=== PATIENT | male | born 1970 | race Caucasian/White ===

== ENCOUNTER 2017-08-18 09:36 | Emergency (ER) | payer BC, SELFPAY ==
[2017-08-18] MEDS ORDERED: AMOX/K CLAV 875 MG TAB ONE (10:25)
[2017-08-18] MEDS ORDERED: HYDROCODONE/APAP 7.5/325 MG TAB ONE (10:25)
[2017-08-18] MEDS ORDERED: TETANUS & DIPHTHERIA TOX,ADULT 0.5 ML VIAL ONE (10:25)
--- NOTE | 2017-08-18 11:33 | RAD REPORT ---
EXAM DESCRIPTION: RAD - Knee Left 3 View - 08/18/2017 11:27 am CLINICAL HISTORY: Pain COMPARISON: None. FINDINGS: No fracture or dislocation is seen. No significant suprapatellar joint fluid. No aggressiv e marrow lesion. IMPRESSION: No acute finding.
--- NOTE | 2017-08-18 11:45 | EDPHYS ---
Physician Documentation [facility] Name: Tejinder Caballero Age: 47 yrs Sex: Male : 1970 Arrival Date: 08/18/2017 Time: 09:39 Bed 11 Private MD: ED Physician Jose Daniel Dominguez HPI: 08/18 11:03 This 47 yrs old Male presents to ER via Wheelchair with complaints of Finger kb Injury, Leg Injury. 11:03 The patient presents with decreased range of motion, pain, that is acute. The kb complaints affect the left knee. Context: The problem was sustained at home, outdoors, resulted from the patient falling, from porch, the patient can partially bear weight, the patient is not able to ambulate, Problem is a result from a previous injury: No. Onset: The symptoms/episode began/occurred yesterday. Modifying factors: The symptoms are alleviated by nothing. the symptoms are aggravated by weight bearing, bending knee. Associated signs and symptoms: Pertinent negatives calf tenderness, fever, nausea, numbness, rash, swelling, tingling, vomiting, warmth, weakness. Treatment prior to arrival includes: no previous treatment. Severity of symptoms: At their worst the symptoms were mild, moderate, in the emergency department the symptoms are unchanged. The patient has not experienced similar symptoms in the past. The patient has not recently seen a physician. Pt states "My dog and I got into a fight last night, he bit me and I fell off the porch landing on my knee." c/o left knee pain. Historical: - Allergies: 09:53 NKA; iw - Home Meds: 09:53 None [Active]; iw - PMHx: 09:53 HEP C; Irregular heart rate; iw - PSHx: 09:53 None; iw - Immunization history:: Adult Immunizations Last tetanus immunization: unknown. - Social history:: Smoking status: Patient uses tobacco products, smokes two packs cigarettes per day. Patient uses alcohol. ROS: 10:58 Constitutional: Negative for fever, chills, and weight loss, Cardiovascular: Negative kb for chest pain, palpitations, and edema, Respiratory: Negative for shortness of breath, cough, wheezing, and pleuritic chest pain, Abdomen/GI: Negative for abdominal pain, nausea, vomiting, diarrhea, and constipation, Neuro: Negative for headache, weakness, numbness, tingling, and seizure. 10:58 MS/extremity: Positive for decreased range of motion, pain, tenderness, of the left knee. 10:58 Skin: Positive for abrasion(s), of the right hand. Exam: 10:58 Constitutional: This is a well developed, well nourished patient who is awake, alert, kb and in no acute distress. Head/Face: Normocephalic, atraumatic. Chest/axilla: Normal chest wall appearance and motion. Nontender with no deformity. No lesions are appreciated. Cardiovascular: Regular rate and rhythm with a normal S1 and S2. No gallops, murmurs, or rubs. Normal PMI, no JVD. No pulse deficits. Respiratory: Lungs have equal breath sounds bilaterally, clear to auscultation and percussion. No rales, rhonchi or wheezes noted. No increased work of breathing, no retractions or nasal flaring. Abdomen/GI: Soft, non-tender, with normal bowel sounds. No distension or tympany. No guarding or rebound. No evidence of tenderness throughout. Neuro: Awake and alert, GCS 15, oriented to person, place, time, and situation. Cranial nerves II-XII grossly intact. Motor strength 5/5 in all extremities. Sensory grossly intact. Cerebellar exam normal. Normal gait. 10:58 Musculoskeletal/extremity: Extremities: grossly normal except: noted in the left knee: decreased ROM, pain, swelling, tenderness, ROM: limited active range of motion due to pain, in the left knee, Circulation is intact in all extremities. Sensation intact. Weight bearing: can bear weight with assistance only. 10:58 Skin: injury, bite(s), superficial, of the right hand. Vital Signs: 09:52 BP 142 / 98; Pulse 81; Resp 16 S; Temp 98.2; Pulse Ox 98% on R/A; Weight 117.03 kg; iw Height 6 ft. 3 in. (190.50 cm); Pain 10; 09:52 Body Mass Index 32.25 (117.03 kg, 190.50 cm) iw MDM: 10:15 Patient medically screened. kb 11:02 Data reviewed: vital signs, nurses notes. Data interpreted: Pulse oximetry: on room air kb is 98 %. Interpretation: normal. 11:35 Counseling: I had a detailed discussion with the patient and/or guardian regarding: the kb historical points, exam findings, and any diagnostic results supporting the discharge/admit diagnosis, radiology results, the need for outpatient follow up, a family practitioner, to return to the emergency department if symptoms worsen or persist or if there are any questions or concerns that arise at home. 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 Exp: iw 01/11/2019. Lot #: [id number]. } Route: IM; Site: right deltoid; 10:39 Drug: [place] (7.5 mg-325 mg) 1 tabs Route: PO; iw 10:39 Drug: Augmentin 875 mg Route: PO; Disposition: 13:03 Co-signature as Attending Physician, Jose Daniel Dominguez MD I agree with the assessment and wa plan of care. Disposition: 08/18/17 11:44 Discharged to Home. Impression: Pain in left knee, Bitten by dog. - Condition is Stable. - Discharge Instructions: Animal Bite, [id number], Knee Pain, [id number]. - Prescriptions for Augmentin 875- 125 mg Oral Tablet - take 1 tablet by ORAL route every 12 hours for 10 days; 20 tablet. Diclofenac Sodium 75 mg Oral Tablet, Delayed Release (E.C.) - take 1 tablet by ORAL route 2 times per day As needed; 30 tablet. - Medication Reconciliation Form, Thank You Letter, Antibiotic Education, Prescription Opioid Use form. - Follow up: Emergency Department; When: As needed; Reason: Worsening of condition. Follow up: Private Physician; When: 2 - 3 days; Reason: Recheck today's complaints, Continuance of care, Re-evaluation by your physician. Signatures: Dispatcher [employer] Saba Scales FNP-C FNP-Devi Galindo RN RN iw [place], MD MD zachery Sky Corrections: (The following items were deleted from the chart) 12:07 11:44 08/18/2017 11:44 Discharged to Home. Impression: Pain in left knee; Bitten by iw dog. Condition is Stable. Forms are Medication Reconciliation Form, Thank You Letter, Antibiotic Education, Prescription Opioid Use. Follow up: Emergency Department; When: As needed; Reason: Worsening of condition. Follow up: Private Physician; When: 2 - 3 days; Reason: Recheck today's complaints, Continuance of care, Re-evaluation by your physician. kb
--- NOTE | 2017-08-18 11:45 | ER ---
Nurse's Notes [facility] Name: Tejinder Caballero Age: 47 yrs Sex: Male : 1970 Arrival Date: 08/18/2017 Time: 09:39 Bed 11 Private MD: Diagnosis: Pain in left knee;Bitten by dog Presentation: 08/18 09:49 Presenting complaint: Patient states: dogs were fighting last night, bit his right iw index finger, and he fell off the porch hurting left knee, cannot bear weight, pt states he was drunk at the time and doesn't remember if he hit his head, denies head or neck pain, has abrasion to left side of face. Transition of care: patient was not received from another setting of care. Onset of symptoms was August 17, 2017. Initial Sepsis Screen: Does the patient meet any 2 criteria? No. Patient's initial sepsis screen is negative. Does the patient have a suspected source of infection? No. Patient's initial sepsis screen is negative. Care prior to arrival: None. 09:49 Method Of Arrival: Wheelchair iw 09:49 Acuity: GERMAIN 4 iw Triage Assessment: 12:06 Injury Description:. iw Historical: - Allergies: 09:53 NKA; iw - Home Meds: 09:53 None [Active]; iw - PMHx: 09:53 HEP C; Irregular heart rate; iw - PSHx: 09:53 None; iw - Immunization history:: Adult Immunizations Last tetanus immunization: unknown. - Social history:: Smoking status: Patient uses tobacco products, smokes two packs cigarettes per day. Patient uses alcohol. Screenin:19 Abuse screen: Denies threats or abuse. Denies injuries from another. Nutritional iw screening: No deficits noted. Tuberculosis screening: No symptoms or risk factors identified. Fall Risk None identified. Assessment: 11:18 General: Appears in no apparent distress. Behavior is calm, cooperative. Pain: iw Complains of pain in right hand and left knee. Neuro: Level of Consciousness is awake, alert, obeys commands, Oriented to person, place, time. Cardiovascular: Patient's skin is warm and dry. Respiratory: Respiratory effort is even, unlabored, Respiratory pattern is regular. Musculoskeletal: Range of motion: limited in left knee. Vital Signs: 09:52 BP 142 / 98; Pulse 81; Resp 16 S; Temp 98.2; Pulse Ox 98% on R/A; Weight 117.03 kg; iw Height 6 ft. 3 in. (190.50 cm); Pain 01/24; 09:52 Body Mass Index 32.25 (117.03 kg, 190.50 cm) iw ED Course: 09:39 Patient arrived in ED. as 09:51 Triage completed. iw 09:52 Arm band placed on. iw 10:10 Devi Rivera RN is Primary Nurse. iw 10:14 Saba Duran FNP-C is PHCP. kb 10:14 Jose Daniel Dominguez MD is Attending Physician. kb 11:19 No provider procedures requiring assistance completed. Patient did not have IV access iw during this emergency room visit. 11:27 Knee Left 3 View XRAY In Process Unspecified. EDMS 12:06 Patient has correct armband on for positive identification. Animal control notified at iw 12:06. 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 Exp: iw 01/11/2019. Lot #: [id number]. } Route: IM; Site: right deltoid; 10:39 Drug: [place] (7.5 mg-325 mg) 1 tabs Route: PO; iw 10:39 Drug: Augmentin 875 mg Route: PO; iw Outcome: 11:44 Discharge ordered by . kb 12:05 Discharged to home ambulatory, with crutches, with family. iw 12:05 Condition: good 12:05 Discharge instructions given to patient, family, Instructed on discharge instructions, follow up and referral plans. Demonstrated understanding of instructions, follow-up care, medications, Prescriptions given X 2. 12:07 Patient left the ED. iw Signatures: Dispatcher [employer] EDMS Saba Duran FNP-C FNP-Carey Lucero as Devi Rivera RN RN iw Corrections: (The following items were deleted from the chart) 09:52 09:49 Presenting complaint: Patient states: dogs were fighting last night, bit his iw right index finger, and he fell off the porch hurting left knee, cannot bear weight iw 09:55 09:49 Presenting complaint: Patient states: dogs were fighting last night, bit his iw right index finger, and he fell off the porch hurting left knee, cannot bear weight, pt states he was drunk at the time and doesn't remember if he hit his head iw
[2017-08-18 12:14] VITALS: BP 142/98; TEMP 98.2; O2SAT 98
== END 2017-08-18 12:07 | disposition home or self-care (01) ==
LOC: ER 09:36
DX: S61.451A Open bite of right hand, initial encounter (principal); M25.562 Pain in left knee; W54.0XXA Bitten by dog, initial encounter; Y92.008 Other place in unspecified non-institutional (private) residence as the place of occurrence of the external cause; Z23 Encounter for immunization
CPT/HCPCS: 90714; 99283

== ENCOUNTER 2018-04-30 11:12 | Emergency (ER) | payer BC, SELFPAY ==
[2018-04-30] MEDS ORDERED: HYDROCODONE/APAP 10/325 TAB ONE (13:09)
[2018-04-30] MEDS ORDERED: IBUPROFEN 200 MG TAB PO ONE (13:09)
--- NOTE | 2018-04-30 13:51 | RAD REPORT ---
EXAM DESCRIPTION: USExtpilo Venous Uni Ltd04/30/2018 1:40 pm CLINICAL HISTORY: Right leg pain . COMPARISON: None. FINDINGS: Right common femoral, superficial femoral, popliteal and right posterior tibial veins are compressible and demonstrate augmentation. Doppler demonstrates good flow. IMPRESSION: No evidence of deep venous thrombosis involving the right lower extremity.
--- NOTE | 2018-04-30 13:51 | RAD REPORT ---
EXAM DESCRIPTION: RAD - Tib Fib Right - 04/30/2018 1:39 pm CLINICAL HISTORY: Right leg pain FINDINGS: No fracture is seen
--- NOTE | 2018-04-30 14:14 | EDPHYS ---
Physician Documentation [facility] Name: Tejinder Caballero Age: 48 yrs Sex: Male : 1970 Arrival Date: 04/30/2018 Time: 11:17 Bed 18 Private MD: None, None ED Physician Lebron Burk HPI: 04/30 13:16 This 48 yrs old Male presents to ER via Ambulatory with complaints of Leg sampson Pain. 13:16 The patient presents with decreased range of motion, pain, that is acute, swelling, sampson tenderness. The complaints affect the right calf. Context: The problem was sustained at home. Onset: The symptoms/episode began/occurred this morning, today. Modifying factors: The symptoms are alleviated by elevating leg, remaining still, the symptoms are aggravated by nothing. Associated signs and symptoms: The patient has no apparent associated signs or symptoms. Treatment prior to arrival includes: no previous treatment. Historical: - Allergies: 11:24 NKA; hj - Home Meds: 11:24 None [Active]; hj - PMHx: 11:24 HEP C; Irregular heart rate; hj - PSHx: 11:24 None; hj - Immunization history:: Adult Immunizations not up to date. - Social history:: Smoking status: Patient uses tobacco products, Patient uses alcohol. - Ebola Screening: : Patient negative for fever greater than or equal to 101.5 degrees Fahrenheit, and additional compatible Ebola Virus Disease symptoms Patient denies exposure to infectious person Patient denies travel to an Ebola-affected area in the 21 days before illness onset. - Family history:: not pertinent. ROS: 13:16 Constitutional: Negative for fever, chills, and weight loss, Eyes: Negative for injury, sampson pain, redness, and discharge, ENT: Negative for injury, pain, and discharge, Neck: Negative for injury, pain, and swelling, Cardiovascular: Negative for chest pain, palpitations, and edema, Respiratory: Negative for shortness of breath, cough, wheezing, and pleuritic chest pain, Abdomen/GI: Negative for abdominal pain, nausea, vomiting, diarrhea, and constipation, Back: Negative for injury and pain, : Negative for injury, bleeding, discharge, and swelling, Skin: Negative for injury, rash, and discoloration, Neuro: Negative for headache, weakness, numbness, tingling, and seizure, Psych: Negative for depression, anxiety, suicide ideation, homicidal ideation, and hallucinations, Allergy/Immunology: Negative for hives, rash, and allergies, Endocrine: Negative for neck swelling, polydipsia, polyuria, polyphagia, and marked weight changes, Hematologic/Lymphatic: Negative for swollen nodes, abnormal bleeding, and unusual bruising. 13:16 MS/extremity: Positive for decreased range of motion, pain, swelling, tenderness, of the right calf. Exam: 13:16 Constitutional: This is a well developed, well nourished patient who is awake, alert, sampson and in no acute distress. Head/Face: Normocephalic, atraumatic. Eyes: Pupils equal round and reactive to light, extra-ocular motions intact. Lids and lashes normal. Conjunctiva and sclera are non-icteric and not injected. Cornea within normal limits. Periorbital areas with no swelling, redness, or edema. ENT: Nares patent. No nasal discharge, no septal abnormalities noted. Tympanic membranes are normal and external auditory canals are clear. Oropharynx with no redness, swelling, or masses, exudates, or evidence of obstruction, uvula midline. Mucous membranes moist. Neck: Trachea midline, no thyromegaly or masses palpated, and no cervical lymphadenopathy. Supple, full range of motion without nuchal rigidity, or vertebral point tenderness. No Meningismus. Chest/axilla: Normal chest wall appearance and motion. Nontender with no deformity. No lesions are appreciated. Cardiovascular: Regular rate and rhythm with a normal S1 and S2. No gallops, murmurs, or rubs. Normal PMI, no JVD. No pulse deficits. Respiratory: Lungs have equal breath sounds bilaterally, clear to auscultation and percussion. No rales, rhonchi or wheezes noted. No increased work of breathing, no retractions or nasal flaring. Abdomen/GI: Soft, non-tender, with normal bowel sounds. No distension or tympany. No guarding or rebound. No evidence of tenderness throughout. Back: No spinal tenderness. No costovertebral tenderness. Full range of motion. Skin: Warm, dry with normal turgor. Normal color with no rashes, no lesions, and no evidence of cellulitis. Neuro: Awake and alert, GCS 15, oriented to person, place, time, and situation. Cranial nerves II-XII grossly intact. Motor strength 5/5 in all extremities. Sensory grossly intact. Cerebellar exam normal. Normal gait. Psych: Awake, alert, with orientation to person, place and time. Behavior, mood, and affect are within normal limits. 13:16 Musculoskeletal/extremity: Extremities: decreased ROM, pain, swelling, tenderness, ROM: full passive range of motion, limited active range of motion, Pulses: noted to be 4+ in the bilateral radial, brachial, femoral, popliteal, posterior tibial and and dorsalis pedis arteries., Severe pain noted. Compartment Syndrome exam of affected extremity: is normal. DVT Exam: negative Homans' sign noted on exam, no appreciated bluish discoloration, no erythema, no increased warmth, pain, swelling, tenderness. Vital Signs: 11:24 BP 135 / 92; Pulse 89; Resp 18; Temp 98.6(TE); Pulse Ox 95% on R/A; Weight 117.93 kg; hj Height 6 ft. 3 in. (190.50 cm); Pain 10/10; 13:46 BP 142 / 85; Pulse 82; Resp 18; Temp 98.2(O); Pulse Ox 95% ; mh5 11:24 Body Mass Index 32.50 (117.93 kg, 190.50 cm) hj MDM: 12:00 Patient medically screened. [facility] 13:19 Data reviewed: vital signs, nurses notes, radiologic studies, doppler, plain films. [facility] 04/30 12:37 Order name: Tib Fib Right XRAY; Complete Time: 14:13 [facility] 04/30 12:37 Order name: US Extremity Venous Unilateral Ltd; Complete Time: 14:13 [facility] 04/30 13:24 Order name: Nir Wrap; Complete Time: 14:17 [facility] 04/30 13:24 Order name: Crutch Training; Complete Time: 14:17 [facility] Administered Medications: 13:01 Drug: Motrin 600 mg Route: PO; hb 14:18 Follow up: Response: No adverse reaction; Pain is decreased hb 13:01 Drug: [place] 10 mg-325 mg 1 tabs Route: PO; hb 14:17 Follow up: Response: No adverse reaction; Pain is decreased hb Disposition: 04/30/18 14:14 Discharged to Home. Impression: Pain in right lower leg - muscular pain, tear. - Condition is Stable. - Discharge Instructions: Muscle Strain, Musculoskeletal Pain, Muscle Pain, Adult, Muscle Strain, [id number]. - Prescriptions for Ibuprofen 600 mg Oral Tablet - take 1 tablet by ORAL route every 8 hours As needed take with food; 21 tablet. Tylenol- Codeine #3 300-30 mg Oral Tablet - take 2 tablet by ORAL route every 6 hours As needed; 30 tablet. - Medication Reconciliation Form, Thank You Letter, Antibiotic Education, Prescription Opioid Use, Work release form form. - Follow up: Private Physician; When: 2 - 3 days; Reason: Recheck today's complaints, Continuance of care, Re-evaluation by your physician. Follow up: Jonathan Reyez; When: 2 - 3 days; Reason: Recheck today's complaints, Continuance of care, Re-evaluation by your physician. - Problem is new. - Symptoms have improved. Signatures: Dispatcher [employer] EDLebron Diaz MD MD cha Joaquin, Henry, RN RN hj Baxter, Heather, RN RN hb Corrections: (The following items were deleted from the chart) 14:31 14:14 04/30/2018 14:14 Discharged to Home. Impression: Pain in right lower leg - hb muscular pain, tear. Condition is Stable. Discharge Instructions: Muscle Strain, Musculoskeletal Pain, Muscle Pain, Adult, Muscle Strain, [id number]. Prescriptions for Ibuprofen 600 mg Oral Tablet - take 1 tablet by ORAL route every 8 hours As needed take with food; 21 tablet, Tylenol-Codeine #3 300-30 mg Oral Tablet - take 2 tablet by ORAL route every 6 hours As needed; 30 tablet. and Forms are Medication Reconciliation Form, Thank You Letter, Antibiotic Education, Prescription Opioid Use. Follow up: Private Physician; When: 2 - 3 days; Reason: Recheck today's complaints, Continuance of care, Re-evaluation by your physician. Follow up: Jonathan Reyez; When: 2 - 3 days; Reason: Recheck today's complaints, Continuance of care, Re-evaluation by your physician. Problem is new. Symptoms have improved. sampson
--- NOTE | 2018-04-30 14:14 | ER ---
Nurse's Notes [facility] Name: Tejinder Caballero Age: 48 yrs Sex: Male : 1970 Arrival Date: 04/30/2018 Time: 11:17 Bed 18 Private MD: None, None Diagnosis: Pain in right lower leg-muscular pain, tear Presentation: 04/30 11:22 Presenting complaint: Patient states: i was fishing this morning and walking on the rocks and suddenly something on my R lower leg snapped; denies taking meds [employer];. Transition of care: patient was not received from another setting of care. Onset of symptoms was April 30, 2018. Risk Assessment: Do you want to hurt yourself or someone else? Patient reports no desire to harm self or others. Initial Sepsis Screen: Does the patient meet any 2 criteria? Yes Does the patient have a suspected source of infection? No. Patient's initial sepsis screen is negative. Care prior to arrival: None. 11:22 Method Of Arrival: Ambulatory 11:22 Acuity: GERMAIN 4 hj Triage Assessment: 11:24 General: Appears in no apparent distress. uncomfortable, Behavior is calm, cooperative, hj appropriate for age. Pain: Complains of pain in right calf. Historical: - Allergies: 11:24 NKA; hj - Home Meds: 11:24 None [Active]; hj - PMHx: 11:24 HEP C; Irregular heart rate; hj - PSHx: 11:24 None; hj - Immunization history:: Adult Immunizations not up to date. - Social history:: Smoking status: Patient uses tobacco products, Patient uses alcohol. - Ebola Screening: : Patient negative for fever greater than or equal to 101.5 degrees Fahrenheit, and additional compatible Ebola Virus Disease symptoms Patient denies exposure to infectious person Patient denies travel to an Ebola-affected area in the 21 days before illness onset. - Family history:: not pertinent. Screenin:24 Abuse screen: Denies threats or abuse. Denies injuries from another. Nutritional hj screening: No deficits noted. Tuberculosis screening: No symptoms or risk factors identified. Fall Risk None identified. Assessment: 12:00 General: Appears in no apparent distress. uncomfortable, Behavior is calm, cooperative. hb Pain: Pain currently is 10 out of 10 on a pain scale. Neuro: Level of Consciousness is awake, alert, obeys commands, Oriented to person, place, time, situation. Cardiovascular: Capillary refill < 3 seconds Patient's skin is warm and dry. Respiratory: Airway is patent Trachea midline Respiratory effort is even, unlabored, Respiratory pattern is regular, symmetrical. GI: No signs and/or symptoms were reported involving the gastrointestinal system. : No signs and/or symptoms were reported regarding the genitourinary system. EENT: No signs and/or symptoms were reported regarding the EENT system. Derm: Skin is intact, is healthy with good turgor. Musculoskeletal: Reports pain in right calf. 13:00 Reassessment: Patient appears in no apparent distress at this time. Patient and/or hb family updated on plan of care and expected duration. Pain level reassessed. Patient is alert, oriented x 3, equal unlabored respirations, skin warm/dry/pink. 14:00 Reassessment: Patient appears in no apparent distress at this time. No changes from previously documented assessment. Patient and/or family updated on plan of care and expected duration. Pain level reassessed. Patient is alert, oriented x 3, equal unlabored respirations, skin warm/dry/pink. Vital Signs: 11:24 BP 135 / 92; Pulse 89; Resp 18; Temp 98.6(TE); Pulse Ox 95% on R/A; Weight 117.93 kg; Height 6 ft. 3 in. (190.50 cm); Pain 10/10; 13:46 BP 142 / 85; Pulse 82; Resp 18; Temp 98.2(O); Pulse Ox 95% ; mh5 11:24 Body Mass Index 32.50 (117.93 kg, 190.50 cm) ED Course: 11:17 Patient arrived in ED. mr 11:17 None, None is Private Physician. mr 11:23 Triage completed. 11:24 Arm band placed on right wrist. 11:24 Patient has correct armband on for positive identification. Bed in low position. Call light in reach. Side rails up X 1. 11:43 Danna White, MARK ANTHONY is Primary Nurse. 12:00 Lebron Burk MD is Attending Physician. [facility] 13:35 X-ray completed. Portable x-ray completed in exam room. Patient tolerated procedure jb2 well. 13:41 Tib Fib Right XRAY In Process Unspecified. EDMS 13:41 US Extremity Venous Unilateral Ltd In Process Unspecified. EDMS 14:14 Jonathan Reyez MD is Referral Physician. [facility] 14:30 No provider procedures requiring assistance completed. Patient did not have IV access hb during this emergency room visit. Administered Medications: 13:01 Drug: Motrin 600 mg Route: PO; hb 14:18 Follow up: Response: No adverse reaction; Pain is decreased hb 13:01 Drug: Metcalfe 10 mg-325 mg 1 tabs Route: PO; hb 14:17 Follow up: Response: No adverse reaction; Pain is decreased hb Outcome: 14:14 Discharge ordered by . [facility] 14:30 Discharged to home with crutches. hb 14:30 Condition: stable 14:30 Discharge instructions given to patient, Instructed on discharge instructions, follow up and referral plans. medication usage, crutch walking, Demonstrated understanding of instructions, follow-up care, medications, crutch walking, Prescriptions given X 2. 14:31 Patient left the ED. hb Signatures: Dispatcher [employer] EDID Lebron Burk MD MD cha Rivera, Mary mr Mccracken Michael jb2 James Tuttle RN RN hj Baxter, Heather, RN RN hb Martinez, Maria [facility] Corrections: (The following items were deleted from the chart) 11:26 11:24 Pulse 89bpm; Resp 18bpm; Pulse Ox 95% RA; Temp 98.6F Temporal; 117.93 kg; Height hj 6 ft. 3 in.; BMI: 32.5; Pain 10/10; hj
[2018-04-30 14:36] VITALS: O2SAT 95
[2018-04-30 14:38] VITALS: BP 142/85; TEMP 98.2
== END 2018-04-30 14:31 | disposition home or self-care (01) ==
LOC: ER 11:12
DX: M79.661 Pain in right lower leg (principal); M79.18 Myalgia, other site; Z72.0 Tobacco use
CPT/HCPCS: 93971; 99284